=== PATIENT | female | born 1995 | race Caucasian/White ===

== ENCOUNTER 2017-03-08 16:28 | Emergency (ER) | payer OTHER ==
[2017-03-08 16:34] VITALS: BP 113/62; PULSE 78; RESP 16; TEMP 98.1; O2SAT 98
--- NOTE | 2017-03-08 16:34 | EDPHY ---
H & P Stated Complaint: Used Plan B 2 days ago;think poss side effects Time Seen by Provider: 03/08/17 16:34 - Personal History LMP (Females 10-55): 15-21 Days Ago Current Tetanus Diphtheria and Acellular Pertussis (TDAP): Yes - Medical/Surgical History Other PMH: Factor V Leiden - Social History Smoking Status: Never smoked Constitutional: Initial Vital Signs Temperature (C) 36.7 C 03/08/17 16:31 Heart Rate 78 03/08/17 16:31 Respiratory Rate 16 03/08/17 16:31 Blood Pressure 113/62 03/08/17 16:31 O2 Sat (%) 98 03/08/17 16:31 O2 Delivery Mode Room Air Allergies/Adverse Reactions: No Known Allergies Allergy (Unverified 03/08/17 16:30) Home Medications: Medication Instructions Recorded Copper T Iud 03/08/17 Medical Decision Making ED Course/Re-evaluation: CHIEF COMPLAINT: Flank pain HISTORY OF PRESENT ILLNESS: The patient is a 21 y/o female with a history of UTIs arriving with her friend complaining of right flank pain onset yesterday. She initially attributed her pain to taking Plan B 2 days ago, but her symptoms now feel more like a UTI. She has associated waxing and waning nausea, urinary frequency, and dysuria. She is otherwise healthy. REVIEW OF SYSTEMS: A 10 point review of systems was performed and is negative with the exception of the elements mentioned in the history of present illness. PHYSICAL EXAM: HR, BP, O2 Sat, RR. Temp noted General Appearance: Alert, well hydrated, appropriate, and non-toxic appearing. Head: Atraumatic without scalp tenderness or obvious injury Eyes: Pupils equal, round, reactive to light and accommodation, EOMI, no trauma , no injection. Nose: Atraumatic, no rhinorrhea, clear. Throat: There is no erythema or exudates, no lesions, normal tonsils, mucus membranes moist. Neck: Supple Respiratory: No retractions, no distress, no wheezes, and no accessory muscle use. Lungs are clear to auscultation bilaterally. Cardiovascular: Regular rate and rhythm, no murmurs, rubs, or gallops. Good capillary refill all extremities. Gastrointestinal: Abdomen is soft, mild suprapubic tenderness, non-distended, no masses, no rebound, no guarding, no peritoneal signs. Musculoskeletal: No CVA tenderness. Normal active ROM of all extremities, atraumatic. Neurological: Alert, appropriate, and interactive. Nonfocal neuro exam. Skin: No rashes, good turgor, no nodules on palpation. Past medical history: Paragard IUD; recurrent UTIs Past surgical history: Denies Family history: noncontributory Social history: Friend at bedside. DIFFERENTIAL DIAGNOSIS: The differential diagnosis for the patient's flank pain included but was not limited to musculoskeletal causes, kidney stone, pyelonephritis, shingles, diverticulitis, appendicitis, and aortic aneurysm. MEDICAL DECISION MAKING: This is 21y/o female with a history of UTIs who presents with a 1-day history of mild suprapubic tenderness and dysuria in conjunction with Plan B use 2 days ago. She is afebrile and non-toxic appearing on exam. Her presentation are consistent with a UTI; I have low suspicion for Plan B or IUD etiology. Her urine dip indicates a UTI and urine will be sent for culture. I discussed these findings with the patient. She will be discharged with scripts for Keflex and Zofran with standard UTI care instructions and return precautions. She understands she should follow up with her PCP for unimproved symptoms. - Data Points Laboratory Results: 03/08/17 16:52 Urine Color Pending Urine Appearance Pending Urine pH Pending Ur Specific [place] Pending Urine Protein Pending Urine Ketones Pending Urine Blood Pending Urine Nitrate Pending Urine Bilirubin Pending Urine Urobilinogen Pending Ur Leukocyte Esterase Pending Urine RBC Pending Urine WBC Pending Ur Epithelial Cells Pending Urine Glucose Pending Departure - Departure Disposition: Home, Routine, Self-Care Clinical Impression: UTI (urinary tract infection) Qualifiers: Urinary tract infection type: acute cystitis Hematuria presence: without hematuria Qualified Code(s): N30.00 - Acute cystitis without hematuria Condition: Good Instructions: Cephalexin (By mouth), Ondansetron (By mouth), Urinary Tract Infection in Women (ED) Additional Instructions: 1. Take Keflex as prescribed. Be sure to take the entire prescription even if you feel better. 2. Use Zofran as prescribed as needed for nausea. 3. Follow up with your primary care provider for unimproved symptoms over the next 3-4 days. 4. Return to the ED for vomiting, uncontrollable fever, severe abdominal or back pain, or other worsening of condition. Referrals: NONE *PRIMARY CARE P,. [Primary Care Provider] - As per Instructions [facility] [Clinic] - As per Instructions Report Scribed for: Reginaldo Capps Report Scribed by: Shruthi Hernandez Date of Report: 03/08/17 Time of Report: 16:51
[2017-03-08] MEDS ORDERED: CEPHALEXIN 500 MG CAP PO ONE (16:51)
[2017-03-08] MEDS ORDERED: ONDANSETRON DISINTEGRATING 4 MG TAB PO ONE (16:51)
[2017-03-08] MEDS ORDERED: ONDANSETRON 4MG PREPACK#2 BTL TAKEHOME ONE (16:51)
[2017-03-08 17:07] LABS: BACTERIA 2+ /hpf (NONE SEEN); COLOR YELLOW; LEUKOCYTE ESTERASE,URINE 2+ (NEGATIVE); MUCUS TRACE /lpf (NONE-1+); NITRITE,URINE NEGATIVE (NEGATIVE); RBC,URINE 25-50 /hpf (0-3); WBC,URINE 50-182 /hpf (0-3)
== END 2017-03-08 17:14 | disposition home or self-care (01) ==
DX: N30.00 Acute cystitis without hematuria (principal); B96.89 Other specified bacterial agents as the cause of diseases classified elsewhere